=== PATIENT | male | born 2005 | race Asian ===

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

== ENCOUNTER 2024-01-04 11:40 | Emergency (ER) | payer OTHER, SELFPAY ==
[2024-01-04 11:41] VITALS: BP 134/72; PULSE 89; RESP 16; TEMP 36.6; O2SAT 96; BMI 17.9
--- NOTE | 2024-01-04 11:43 | RAD_ITS ---
INDICATION: INJURY EXAMINATION/TECHNIQUE: X-RAY - LEFT XR Knee Complete 4 Views or More 4 VIEWS COMPARISON: No relevant prior comparison study available FINDINGS: SOFT TISSUES: No soft tissue swelling or gas. No radiopaque foreign body. BONES/JOINTS: No acute fracture or subluxation.. Normal alignment. Preservation of the joint space.. No sclerotic or destructive changes observed. RAD/Knee 4 or More Views IMPRESSION: No acute osseous injury. Electronically Signed: Angeline Sanderson MD at 11:59 EDT ,
--- NOTE | 2024-01-04 12:19 | EDS_ITS ---
HPI <VELASQUEZ Garcia - Last Filed: 01/04/24 13:32> History of Present Illness Chief Complaint: Lower Extremity Injury Narrative Narrative: Patient presenting today with left knee pain he has had over the past 2 days. He reports that he was playing soccer and he jumped up in the air and landed awkwardly on his left lower extremity, he felt a pop in his knee. He has had a difficult time ambulating due to the pain. PFSH <VELASQUEZ Garcia - Last Filed: 01/04/24 13:32> PFSH Home Medications ondansetron 4 mg disintegrating tablet 4 mg PO Q8H PRN PRN Nausea #10 tabs 05/31/23 [Rx Last Taken Unknown] hydrocodone-acetaminophen 5-325mg 5mg-325mg 1 tab PO Q4H PRN PRN Pain 3 days #7 TABLETS 01/04/24 [Rx Last Taken Unknown] ibuprofen 600 mg tablet 600 mg PO Q6H PRN PRN pain #20 TABLETS 01/04/24 [Rx Last Taken Unknown] Allergy/AdvReac Type Severity Reaction Status Date / Time No Known Allergies Allergy Verified 01/04/24 11:43 Social History Smoking Status: Never smoker ROS <VELASQUEZ Garcia - Last Filed: 01/04/24 13:32> ROS ED Constitutional Constitutional ED: Denies chills or fever(s) Cardiovascular Cardiovascular: Denies chest pain Respiratory/Chest Respiratory/Chest: Denies cough or dyspnea Gastrointestinal Gastrointestinal: Denies abdominal pain, nausea or vomiting Musculoskeletal Musculoskeletal: Reports arthralgias Integumentary Denies Abrasions Neurologic Neurologic: Denies paresthesias EXAM <VELASQUEZ Garcia - Last Filed: 01/04/24 13:32> Physical Exam Const Vital Signs: 01/04/24 11:41 Temperature 98 F Temperature Source Temporal Pulse Rate 89 Respiratory Rate 16 Blood Pressure 134/72 H Blood Pressure Mean 92 Pulse Ox 96 Oxygen Delivery Method Room Air Positive well nourished, well developed and no apparent distress General Appearance ED: well developed HEENT Reports normocephalic and head/scalp atraumatic Mouth ED: Yes moist mucous membranes normal Eyes PERRL and EOMs intact bilaterally Neck full ROM and supple Chest Wall inspection of chest normal Resp normal respiratory effort and clear to auscultation bilaterally Cardio regular rate and regular rhythm Back/Spine normal ROM and normal to inspection Extremity normal to inspection and full ROM Extremity Narrative: Minimal edema to the medial aspect of left knee, pain to the medial aspect. Limited range of motion to the knee due to pain. Extensor mechanism intact, intact flexion of the knee. Neuro oriented x3, CN's II-XII intact bilaterally, moves all extremities, no focal motor deficits and no sensory deficits noted Sensorium / Orientation: awake and alert Psych mental status grossly normal and thought process normal Skin no rashes or lesions noted and no wounds <Dr. Bijan Bautista, - Last Filed: 01/04/24 16:15> Physical Exam Const Vital Signs: 01/04/24 11:41 Temperature 98 F Temperature Source Temporal Pulse Rate 89 Respiratory Rate 16 Blood Pressure 134/72 H Blood Pressure Mean 92 Pulse Ox 96 Oxygen Delivery Method Room Air MDM <VELASQUEZ Garcia - Last Filed: 01/04/24 13:32> [facility] Narrative Medical decision making narrative: Patient presenting today with pain to his left knee after injuring it while playing soccer 2 days ago. He has limited ROM due to pain, but extensor mechanism is intact. X-ray obtained and is negative for any acute findings. Examination is suspicious for MCL injury/ possibly medial meniscal injury. He will be placed in a knee immobilizer and given crutches. He was given ibuprofen here and will be given a prescription for ibuprofen and a few [place]. He will be given an orthopedic referral and discharged home in stable condition. RICE instructions discussed. Radiography X-Ray: Read by ED Physician Diagnostic Testing: Clinical Impression(s) from Imaging Studies Knee X-Ray 01/04/24 11:43 IMPRESSION: No acute osseous injury. Electronically Signed: Angeline Sanderson MD at 11:59 EDT , <Dr. Bijan Bautista DO - Last Filed: 01/04/24 16:15> [facility] Narrative Medical decision making narrative: Patient presenting today with pain to his left knee after injuring it while playing soccer 2 days ago. He has limited ROM due to pain, but extensor mechanism is intact. X-ray obtained and is negative for any acute findings. Examination is suspicious for MCL injury/ possibly medial meniscal injury. He will be placed in a knee immobilizer and given crutches. He was given ibuprofen here and will be given a prescription for ibuprofen and a few [place]. He will be given an orthopedic referral and discharged home in stable condition. RICE instructions discussed. This patient was seen with a PA/IN HOME SALES REPRESENTATIVE Individually assessed they patient including history and physical. I have reviewed everything on the chart that is available and agree with the documentation provided by the PA/IN HOME SALES REPRESENTATIVE including discussion about the assessment, treatment plan, discussion, and return precautions. Patient presenting after left knee injury. He injured it a couple of days ago but states he really has not been able to walk on it. Extension has been is in tact. I do believe he likely tore his MCL and medial meniscus. Is placed in a knee immobilizer. He was given [place] for pain. Patient states that he is going back to [facility] within the next week and I recommended he followed up there. Return precautions discussed. Radiography Diagnostic Testing: Clinical Impression(s) from Imaging Studies Knee X-Ray 01/04/24 11:43 IMPRESSION: No acute osseous injury. Electronically Signed: Angeline Sanderson MD at 11:59 EDT , Discharge Plan Triage Chief Complaint: Lower Extremity Injury ED Midlevel Provider: Erika Benavidez ED Provider: Bijan Bautista Dx/Rx/DC Orders Clinical Impression: Strain of knee Instructions: ED Knee Sprain Prescriptions: New ibuprofen 600 mg tablet 600 mg PO Q6H PRN PRN (Reason: pain) Qty: 20 0RF hydrocodone-acetaminophen 5-325 mg tablet 1 tab PO Q4H PRN PRN (Reason: Pain) 3 Days Qty: 7 0RF No Action ondansetron [ondansetron] 4 mg tablet,disintegrating 4 mg PO Q8H PRN PRN (Reason: Nausea) Qty: 10 0RF Primary Care Provider: Care Physician,No Primary Referrals: Jon Guidry MD [Non-Staff] - Jermaine Castillo DO [Med Staff - Active Staff] - 5-7 Days Activity Restrictions/Additional Instructions: Please follow-up with orthopedics, ice your knee for 15 to 20 minutes at a time few times a day, alternate Tylenol and ibuprofen for your pain as needed. Disposition Disposition: Home, Self Care Discharge Date/Time: 01/04/24 13:52
[2024-01-04] MEDS: Ibuprofen 600 MG Tablet PO (12:31)
== END 2024-01-04 13:52 | disposition home or self-care (01) ==
PROVIDERS: Emergency Provider Student in an Organized Health Care Education/Training Program; Visit Provider Student in an Organized Health Care Education/Training Program
DX: S83.92XA Sprain of unspecified site of left knee, initial encounter (principal); Y93.66 Activity, soccer
CPT/HCPCS: 73564; 99284